=== PATIENT | male | born 1950 | race Caucasian/White ===

== ENCOUNTER 2023-01-27 13:07 | Outpatient (CLI) | payer MEDICARE, BC, SELFPAY ==
[2023-01-27 23:18] LABS: Uric Acid* 7.6 mg/dL (2.2-8.4)
== END 2023-01-27 13:08 | disposition home or self-care (01) ==
PROVIDERS: Visit Provider Physician Assistant
DX: M10.9 Gout, unspecified (principal); M79.89 Other specified soft tissue disorders
CPT/HCPCS: 84550

== ENCOUNTER 2023-04-03 11:17 | Emergency (ER) | payer MEDICARE, BC, SELFPAY ==
[2023-04-03 11:32] VITALS: BP 149/91; PULSE 56; RESP 18; TEMP 36.7; O2SAT 96; BMI 24.8
--- NOTE | 2023-04-03 11:55 | CRLHL7_ITS ---
For Patients: As a result of the Cures Act, medical imaging exams and procedure reports are released immediately into your electronic medical record. You may view this report before your referring provider. If you have questions, please contact your health care provider. INDICATION: Trauma. TECHNIQUE: Left ribs, 2 views. COMPARISON: None. FINDINGS: Bones and soft tissues: No significant findings. IMPRESSION: No acute or significant findings. Dictated by Miguelito Franco MD @ 04/03/2023 1:36:31 PM (Electronically Signed)
--- NOTE | 2023-04-03 12:14 | ED_ITS ---
HPI - General Adult General Chief complaint: Flank Pain Stated complaint: Fell yesterday, L ribs injury Time Seen by Provider: 04/03/23 12:05 History of Present Illness HPI narrative: patient fell off a ladder yesterday about 4 feet round 1100. fell on the left rib concerned of a rib fx and left elbow has a hole tht keeps bleeding. patient sneezed and passed out after the event happened for about 2 minutes, was not conscious with eyes open happened around 1200. hurts to cough, can here clicking, hurts in the lower left above the hip. guy SOB 85-year-old man presenting to the emergency department complaint of left chest pain following a fall yesterday off of a ladder. Says about 24 hours ago now. He is worried that he might have sustained a rib fracture. He fell onto his left side. Denies hitting his head. There was no loss of consciousness related to the fall directly. He is not having any neck or back pain otherwise. No significant difficulty breathing but certainly hurts to cough and rotation/transitions are painful. He did sneeze following this fall and passed out briefly he thinks due to the pain. He can feel a clicking in the left side lower ribs. He also injured his left elbow. This continues to ooze a little blood. He is not having any difficulty moving his arm. No difficulty with ambulation. No nausea no abdominal pain. Related Data Home Medications Medication Instructions Recorded Confirmed lisinopril 10 mg tablet 10 mg PO DAILY 01/27/23 04/03/23 Previous Rx's Medication Instructions Recorded lisinopril 10 mg tablet 10 mg PO DAILY #30 tabs 04/03/23 Allergies Allergy/AdvReac Type Severity Reaction Status Date / Time No Known Drug Allergies Allergy Verified 04/03/23 11:41 Review of Systems Status of ROS: Reports: 6 or more systems reviewed and unremarkable except as noted in History and below Exam Narrative: Exam Narrative: Pleasant man. NAD. Seated at the edge of the exam bed. GCS of 15. Accompanied to this visit by spouse. Appears to be breathing easily. Head is atraumatic. Cranial nerves 2-12 intact. Pupils are 2 mm equal and appropriately reactive. Neck is supple nontender. Back nontender. Heart in slow but regular rate. Lungs with breath sounds throughout. Equal expansion excursion of the chest. There is clearly tenderness with oppositional compressing of the left side chest wall. Direct palpation reveals palpable bony click at the left low mid axillary line. Abdomen is soft and nontender. I do not see any bruising or erythema over the torso or abdomen. No pain to palpation over the clavicles and without crepitus in the supraclavicular area. Extremities are well perfused. Moving all without difficulty. 1 cm laceration of the left elbow that looks to be well approximating. Does open the with skin stress. This was revealed after removal of dressing. Looks like was dressed with moist/antibiotic ointment and Band-Aids. Not actively bleeding. No restriction to movement of the elbow. Does not appear to be actively bleeding at this time. Looks to have healed well. Clean. Const: Vital Signs, click to edit/add: Vital Signs - 24 hr 04/03/23 11:32 Temperature 98.1 F Pulse Rate [Right Pulse Oximeter] 56 L Respiratory Rate 18 Blood Pressure [Ri ght Upper Arm] 149/91 H Pulse Oximetry 96 Oxygen Delivery Me thod Room Air Documenting provider has reviewed patient's vital signs: yes Course Vital Signs Vital signs: Initial Vital Signs Temperature 98.1 F 04/03/23 11:32 Temperature Source Temporal Artery Scan 04/03/23 11:32 Pulse Rate 56 L 04/03/23 11:32 Respiratory Rate 18 04/03/23 11:32 Blood Pressure 149/91 H 04/03/23 11:32 Blood Pressure Mean 110 H 04/03/23 11:32 Blood Pressure Position Sitting 04/03/23 11:32 Pulse Oximetry 96 04/03/23 11:32 Oxygen Delivery Method Room Air 04/03/23 11:32 Vital Signs Temperature 98.1 F 04/03/23 11:32 Pulse Rate 56 L 04/03/23 11:32 Respiratory Rate 18 04/03/23 11:32 Blood Pressure 149/91 H 04/03/23 11:32 Pulse Oximetry 96 04/03/23 11:32 Oxygen Delivery Method Room Air 04/03/23 11:32 Temperature 98.1 F 04/03/23 11:32 Pulse Rate 56 L 04/03/23 11:32 Respiratory Rate 18 04/03/23 11:32 Blood Pressure 149/91 H 04/03/23 11:32 Pulse Oximetry 96 12/29/23 11:32 Oxygen Delivery Method Room Air 04/03/23 11:32 Medical Decision Making MDM Narrative Medical decision making narrative: We discussed evaluation/treatment options, pain management options. Decided to proceed with chest/rib x-ray. I do not see indication of other injury than mentioned above. Abdomen is reassuringly soft. The apparent syncopal event does seem to have been pain induced and I do not think given absence of other history for him requires further investigation. And otherwise does not appear to be concussed. Left-side rib/chest x-ray on my read appears to be without any displaced rib fracture; no fracture anyway that would be cause of viscous injury otherwise. I do have concerns that a rib fracture is still present as per exam. Did offer rib binder if helpful for discomfort. He would like to try one but apparently we are out of rib binders. Nursing placed in José Manuel wrap instead. Seems to help a little. Cleaned and redressed elbow. I do not think suturing actually necessary here. See patient discharge plan Medical Records Medical records reviewed: Yes I reviewed the patient's medical records Discharge Plan Discharge Clinical Impression: Closed rib fracture, Laceration Patient Disposition: Home, Self-Care Condition: Stable Additional Instructions: Can take temporarily with a little food up to 800 mg of ibuprofen per dose. Alternative to this might be up to 500 mg naproxen 2 times daily. Either can be combined with acetaminophen. Can wear this José Manuel wrap as compression as needed for comfort. If using this José Manuel wrap try to take a few deep breaths a few times daily. I think this wound will now heal okay on your elbow. Just cover with a dry dressing to hasten healing. I will let you know if Radiology has anything more to say about your x-rays. Prescriptions: New lisinopril 10 mg tablet 10 mg PO DAILY Qty: 30 0RF No Action lisinopril 10 mg tablet 10 mg PO DAILY Follow Up/Referrals: Provider,Not a Local [Referring] - Stand Alone Forms: [employer] Info Instructions
== END 2023-04-03 13:37 | disposition home or self-care (01) ==
PROVIDERS: Emergency Provider Family Medicine; PCP Physician Assistant Medical
DX: S22.32XA Fracture of one rib, left side, initial encounter for closed fracture (principal); S51.012A Laceration without foreign body of left elbow, initial encounter; W11.XXXA Fall on and from ladder, initial encounter
CPT/HCPCS: 71100; 99283; 99284